=== PATIENT | male | born 1975 | race Caucasian/White ===

== ENCOUNTER 2018-08-12 14:19 | Outpatient (CLI) | payer OTHER ==
[2015-09-29 22:21] VITALS: BP 129/93
== END 2018-08-12 14:21 ==
LOC: LAB 14:19
PROVIDERS: ATTEND Family Medicine
DX: E03.9 Hypothyroidism, unspecified (principal)
CPT/HCPCS: 36415; 84439; 84443; 84481

== ENCOUNTER 2019-01-14 08:47 | Outpatient (CLI) | payer OTHER ==
[2015-09-29 22:21] VITALS: BP 129/93
[2019-01-14 09:32] LABS: BASOPHILS % 0.7 % (0.0-1.5); NEUTROPHILS # 1.5 # k/uL (1.4-7.7)
[2019-01-14 09:41] LABS: SEGMENTED NEUTROPHILS % 56 % (39-79)
[2019-01-14 10:02] LABS: eGFR (Non-African) > 60
[2019-01-14 10:03] LABS: HDL 40 mg/dL (>40)
[2019-01-14 10:08] LABS: A1C 13.2 % (<5.7)
[2019-01-14] MEDS ORDERED: INSULIN REGULAR, HUMAN 100 UNIT/ML 10ML VIAL ONE (12:49)
[2019-01-14] MEDS ORDERED: 0.9 % SODIUM CHLORIDE 2,000 ML IV ONE (12:51)
[2019-01-14 16:20] LABS: PH BG VENOUS 7.13 (7.32-7.43)
== END 2019-01-14 15:00 | disposition home or self-care (01) ==
LOC: LAB 08:47 → INF 15:00
PROVIDERS: ATTEND Nurse Practitioner Family
DX: E03.9 Hypothyroidism, unspecified (principal); R63.4 Abnormal weight loss; R73.09 Other abnormal glucose
CPT/HCPCS: 36415; 80053; 80061; 82043; 82805; 83036; 83690; 84439; 84443; 84481; 85025; J1815; J7030

== ENCOUNTER 2019-01-16 12:49 | Outpatient (CLI) | payer OTHER ==
[2015-09-29 22:21] VITALS: BP 129/93
--- NOTE | 2019-01-16 14:07 | Diagnostic Imaging Report ---
PATIENT MR#: [id number] PATIENT PATIENT NAME: ALEXANDRE HARRY DATE OF : 1975 REFERRING PHYSICIAN: Magi Griggs EXAM DATE: 01/16/2019 ACCESSION NUMBER: [id number] EXAM DESCRIPTION: CT ABD PELVIS W/ CON Exam: CT abdomen and pelvis with contrast. History: Unexplained weight loss. Axial images through the abdomen and pelvis after IV infusion of 95 cc Omnipaque is submitted along w ith sagittal and coronal reformatted images. The visualized lower lung sherman are clear. No free intraperitoneal air is identified. The gallbladder is partially distended without stones. The liver, spleen and pancreas are normal att enuation and enhancement. The adrenal glands are normal configuration. The abdominal aorta is of normal caliber. No periaortic lymphadenopathy is identified. Both kidneys are normal attenuation and enhancement. A left-sided extrarenal pelvis is suspected. T he urinary bladder is distended. No intrinsic filling defects are identified. The visualized appendix is of normal configuration. The small bowel is within normal limits in calib er. Air and stool seen throughout the large intestine. No inflammatory changes in the mesentery is identified. No bony abnormalities are seen. Impression: The solid organs of the abdomen are normal attenuation and enhancement. Extrarenal pelvis on the left side is noted. The appendix is of normal configuration. Nonspecific bowel gas pattern. No inflammatory changes in the mesentery is identified. Read by: Dr. Carter Corona Transcribed by: Transcribed Date: Electronically signed by: Dr. Carter Corona Date signed: 01/16/2019 2:06:37 PM
== END 2019-01-16 13:00 ==
LOC: RAD 12:49
PROVIDERS: ATTEND Nurse Practitioner Family
DX: E03.9 Hypothyroidism, unspecified (principal); Z80.8 Family history of malignant neoplasm of other organs or systems
CPT/HCPCS: 74177; Q9967